=== PATIENT | male | born 1985 | race Caucasian/White ===

== ENCOUNTER 2018-04-08 22:56 | Emergency (ER) | payer BC ==
[~2018-04-08] VITALS: Ht 175.3 cm; Wt 70.5 kg
[2018-04-08 22:59] VITALS: BP 147/87; TEMP 97.8
[2018-04-08] MEDS ORDERED: BACTRIM DS 8001 TAB PO (23:22)
[2018-04-08 23:38] VITALS: PULSE 90
== END 2018-04-08 23:40 | disposition home or self-care (01) ==
LOC: COL.ER 22:56
DX: L02.214 Cutaneous abscess of groin (principal); F17.210 Nicotine dependence, cigarettes, uncomplicated